=== PATIENT | female | born 1995 | race African-American/Black ===

== ENCOUNTER 2021-02-06 14:40 | Emergency (ER) | payer BC, SELFPAY ==
[2021-02-06 15:05] VITALS: BP 138/71; PULSE 86; RESP 18; TEMP 36.7; O2SAT 100
--- NOTE | 2021-02-06 15:07 | ED.URI ---
HPI - URI/Sore Throat General Chief Complaint: Upper Respiratory Infection Stated Complaint: Cough Time Seen by Provider: 02/06/21 15:07 Source: patient, family (mom), RN notes reviewed and old records reviewed Limitations: no limitations History of Present Illness HPI Narrative: 25-year-old female presents to the [facility] with concerns over COVID-19. States her mom did a rapid test last night which was positive. States that her job would not except that test. Has had nasal congestion, cough and rhinorrhea for 6 days. MD elicited complaint: cough, rhinorrhea and nasal congestion Related Data Home Medications Medication Instructions Recorded Confirmed No Home Medications 02/06/21 02/06/21 Allergies Allergy/AdvReac Type Severity Reaction Status Date / Time No Known Allergies Allergy Verified 02/06/21 15:19 Review of Systems Review of Systems: All systems reviewed & are unremarkable except as noted in HPI and below Constitutional: Constitutional: Reports no additional constitutional complaints, Denies chills and Denies fever(s) Eyes: Eyes: Reports no additional eye complaints ENT: Reports as per HPI and Reports nasal congestion Comments: Rhinorrhea Cardiovascular: Cardiovascular: Reports no additional cardiovascular complaints and Denies chest pain Respiratory: Respiratory: Reports as per HPI and Reports cough Musculoskeletal: Musculoskeletal: Reports no additional musculoskeletal complaints Integumentary/Breasts: Skin/Breast: Reports system reviewed and no additional complaints, except as docu Neurologic: Reports system reviewed and no additional complaints, except as documented Psychiatric: Psychiatric: Reports no additional psychiatric complaints Allergic/Immunologic: Allergic/Immunologic: Reports no additional allergic/immunologic complaints [facility] Past Medical History Medical History (Updated 02/06/21 @ 20:04 by Romina Flor) Asthma Comments At the time of my signature, I reviewed and agree with the nursing past medical, surgical, social, and family history. There is no relevant family history pertinent to the patient complaint. Exam Const: General: healthy appearing, no acute distress and alert Nutritional Appearance: well nourished and obese Orientation/consciousness: patient oriented x3 Limitations: no limitations HENMT: Head: normal to inspection Ears: external ears normal, TM's normal bilaterally and EAC's normal Eyes: Conjunctivae: conjunctivae normal Pupils: Equal, round and reactive pupils present EOM: EOMs intact bilaterally Direct Ophthalmoscopy: no photophobia Neck: Neck: normal visual inspection, no lymphadenopathy and no meningeal signs Chest: Chest palpation & inspection: normal inspection of the chest Resp: Effort & Inspection: normal respiratory effort and no use of accessory muscles Auscultation: clear to auscultation bilaterally, no crackles, no rales, no rhonchi and no wheezes Cardio: Rate: regular rate Rhythm: regular rhythm Back/Spine/Pelvis: Back: no CVA tenderness Skin: General skin exam: normal color Rashes: no rashes Wounds: no wounds Neuro: General: patient oriented x3, moves all extremities, no meningeal signs and no focal motor deficits Speech: normal speech Gait exam (Neuro): Normal gait present Extrem: General: normal to inspection Psych: Appearance: grossly normal and well kempt Mental Status: mental status grossly normal Affect: normal affect Attitude: cooperative Thought content: Yes Normal thought content present Course Course Emergency Course: Discharge instructions reviewed with patient, as well as provided in writing per nursing staff. The instructions also include specific and strict return/GO TO THE ER as well as f/u information. All questions have been answered, and the patient deny any further questions with discharge and discharge plan. Vital Signs Vital signs: Vital Signs Temperature 98.0 F 02/06/21 15:05 Pulse R
== END 2021-02-06 15:43 | disposition home or self-care (01) ==
PROVIDERS: Emergency Provider Nurse Practitioner
DX: U07.1 COVID-19 (principal); J45.909 Unspecified asthma, uncomplicated
CPT/HCPCS: 87426; 87804; 99203; C9803; G0463

== ENCOUNTER 2021-02-07 11:29 | Outpatient (CLI) | payer BC, SELFPAY ==
--- NOTE | 2021-02-07 11:35 | PC.NURSE ---
Pt to room 201 amb. A&Ox3. Infusion plan of care explained. Pt understands. Consent read and signed. Pt has no questions or complaints. Oriented to room. Call chamberlain in reach. Reminded to call with needs.
[2021-02-07 11:48] VITALS: BP 135/87; PULSE 76; RESP 20; TEMP 36.3; O2SAT 98
[2021-02-07] MEDS: ACETAMINOPHEN 325 MG TABLET 650 MG PO (11:54)
[2021-02-07] MEDS: FAMOTIDINE 20 MG TABLET PO (11:54)
[2021-02-07] MEDS: diphenhydrAMINE HCl CAP 25 MG CAPSULE PO (11:54)
--- NOTE | 2021-02-07 13:10 | PC.NURSE ---
Pt discharged to home amb without complaint.
== END 2021-02-07 11:30 | disposition home or self-care (01) ==
PROVIDERS: PCP Nurse Practitioner Family; Visit Provider Nurse Practitioner Family
DX: U07.1 COVID-19 (principal); J44.9 Chronic obstructive pulmonary disease, unspecified
CPT/HCPCS: A9270; M0245; Q0245